=== PATIENT | female | born 1955 | race Caucasian/White ===

== ENCOUNTER 2018-01-08 13:41 | Emergency (ER) | payer OTHER ==
[~2018-01-08] VITALS: Ht 160 cm; Wt 72.1 kg
[2018-01-08] MEDS ORDERED: NAPROXEN 500 MG TABLET ONE (14:11)
[2018-01-08] MEDS ORDERED: NAPROXEN 500 MG TABLET PO ONE (14:30)
[2018-01-08 15:17] VITALS: BP 164/82
== END 2018-01-08 15:38 | disposition home or self-care (01) ==
LOC: ED 15:32
DX: G44.301 Post-traumatic headache, unspecified, intractable (principal); G56.00 Carpal tunnel syndrome, unspecified upper limb
CPT/HCPCS: 70450; 72125; 99284

== ENCOUNTER 2019-06-18 15:58 | Outpatient (CLI) | payer MEDICARE | END 2019-06-18 23:59 | disposition home or self-care (01) | LOC: RAD 15:58 | PROVIDERS: ATTEND Nurse Practitioner | DX: I82.4Z1 Acute embolism and thrombosis of unspecified deep veins of right distal lower extremity (principal) ==